=== PATIENT | female | born 1965 | race Caucasian/White ===

== ENCOUNTER 2018-03-05 08:24 | Outpatient (CLI) | payer OTHER | END 2018-03-05 08:35 | disposition home or self-care (01) | LOC: RAD 08:24 | DX: R22.2 Localized swelling, mass and lump, trunk (principal); Z01.810 Encounter for preprocedural cardiovascular examination ==

== ENCOUNTER → 2018-03-05 | Outpatient (CLI) | payer OTHER ==
[~2018-03-05] MED LIST: CLARINEX5 MG/TAB PO; FIORICET TABLET1 TAB PO; GILTUSS TR1 TAB.SR . PO; MEDROL4 MG PO; NORFLEX 30MG30 MG/ML IM
== END | disposition home or self-care (01) ==
LOC: LAB 07:12
DX: R22.2 Localized swelling, mass and lump, trunk (principal); Z01.812 Encounter for preprocedural laboratory examination

== ENCOUNTER → 2018-03-19 | Day surgery (SDC) | payer OTHER ==
[~2018-03-19] MED LIST changes: +FIORICET PO; +ULTRACET PO
== END | disposition home or self-care (01) ==
LOC: CIR.AMB 06:15
DX: L02.31 Cutaneous abscess of buttock (principal)

== ENCOUNTER 2018-03-30 13:57 | Outpatient (CLI) | payer OTHER | END 2018-03-30 14:05 | disposition home or self-care (01) | LOC: NUCLEAR 13:57 | DX: N95.1 Menopausal and female climacteric states (principal); Z13.820 Encounter for screening for osteoporosis ==